=== PATIENT | female | born 1970 | race African-American/Black ===

== ENCOUNTER 2017-01-23 16:26 | Emergency (ER) | payer BC ==
[~2017-01-23] VITALS: Ht 167.6 cm; Wt 97.6 kg
[~2017-01-23 16:26] MED LIST: NO MEDS; NOHOMEMEDS; VIMOVO 500-201 EAC1 PO
[2017-01-23] MEDS ORDERED: VENTOLIN HFA18 GM IH (17:55)
[2017-01-23] MEDS ORDERED: MOTRIN800 MG PO (17:55)
[2017-01-23] MEDS ORDERED: FLONASE16 G1 BOTH NARES (17:55)
[2017-01-23] MEDS ORDERED: TESSALON PERLE100 MG PO (17:55)
[2017-01-23] MEDS ORDERED: PREDNISONE20 MG PO (17:55)
[2017-01-23 18:25] LABS: INFLUENZA A VIRAL ANTIGEN NEGATIVE; INFLUENZA B VIRAL ANTIGEN POSITIVE
[2017-01-23 18:43] VITALS: BP 132/82
== END 2017-01-23 18:44 | disposition home or self-care (01) ==
LOC: EME 16:26
PROVIDERS: Physician Assistant
DX: J10.1 Influenza due to other identified influenza virus with other respiratory manifestations (principal); J01.90 Acute sinusitis, unspecified; J20.9 Acute bronchitis, unspecified; K90.0 Celiac disease
CPT/HCPCS: 87502; 94640; 99281; 99284; J7512

== ENCOUNTER 2018-04-29 17:59 | Emergency (ER) | payer BC ==
[~2018-04-29] VITALS: Ht 165.1 cm; Wt 97.7 kg
[~2018-04-29 17:59] MED LIST changes: +FLONASE16 G1 BOTH NARES; +MOTRIN800 MG PO; +PREDNISONE20 MG PO; +TESSALON PERLE100 MG PO; +VENTOLIN HFA18 GM IH
[2018-04-29] MEDS ORDERED: LIDODERM 5% P1 PATCH TD (18:53)
[2018-04-29] MEDS ORDERED: FLEXERIL10 MG PO (18:53)
[2018-04-29] MEDS ORDERED: MOTRIN800 MG PO (18:53)
[2018-04-29 19:12] VITALS: BP 138/84
== END 2018-04-29 19:51 | disposition hospice, inpatient (51) ==
LOC: EME 17:59
DX: S39.012A Strain of muscle, fascia and tendon of lower back, initial encounter (principal); X58.XXXA Exposure to other specified factors, initial encounter; M54.41 Lumbago with sciatica, right side; K90.0 Celiac disease; Z90.710 Acquired absence of both cervix and uterus; Z91.02 Food additives allergy status
CPT/HCPCS: 72100; 99281; 99284; J1885

== ENCOUNTER 2018-05-16 14:57 | Emergency (ER) | payer BC ==
[~2018-05-16] VITALS: Ht 165.1 cm; Wt 98.3 kg
[~2018-05-16 14:57] MED LIST changes: +FLEXERIL10 MG PO; +LIDODERM 5% P1 PATCH TD
[2018-05-16 17:54] LABS: APPEARANCE CLEAR ((CLEAR)); BILIRUBIN NEGATIVE; BLOOD SMALL; COLOR COLORLESS ((YELLOW)); GLUCOSE (STRIP) NEGATIVE; KETONES NEGATIVE; LEUKOCYTES NEGATIVE; NITRITE NEGATIVE; PROTEIN (STRIP) NEGATIVE; SPECIFIC GRAVITY 1.004 (1.000-1.030); UROBILINOGEN 0.2 MG/DL (0.2-1.0)
[2018-05-16 18:08] LABS: BACTERIA RARE /HPF; EPITHELIAL CELLS RARE /HPF; MUCUS NONE SEEN /LPF; RED BLOOD CELLS 0-5 /HPF (0-5); UCUL ADDED? NO; WHITE BLOOD CELLS 0-5 /HPF (0-5)
[2018-05-16] MEDS ORDERED: ULTRACET1 TABLET PO (19:10)
[2018-05-16 19:28] VITALS: BP 151/83
== END 2018-05-16 19:29 | disposition home or self-care (01) ==
LOC: EME 14:57
PROVIDERS: Physician Assistant
DX: M54.16 Radiculopathy, lumbar region (principal); R31.9 Hematuria, unspecified
CPT/HCPCS: 74176; 81003; 81025; 99281; 99284; J1100

== ENCOUNTER 2018-06-09 15:00 | Emergency (ER) | payer BC ==
[~2018-06-09] VITALS: Ht 165.1 cm; Wt 100.6 kg
[~2018-06-09 15:00] MED LIST changes: +ULTRACET1 TABLET PO
[2018-06-09 16:02] LABS: APPEARANCE CLEAR ((CLEAR)); BILIRUBIN NEGATIVE; BLOOD NEGATIVE; COLOR YELLOW ((YELLOW)); GLUCOSE (STRIP) NEGATIVE; KETONES NEGATIVE; LEUKOCYTES NEGATIVE; NITRITE NEGATIVE; PROTEIN (STRIP) NEGATIVE; SPECIFIC GRAVITY 1.025 (1.000-1.030); UROBILINOGEN 0.2 MG/DL (0.2-1.0)
[2018-06-09] MEDS ORDERED: LIDODERM 5% P1 PATCH TD (16:51)
[2018-06-09] MEDS ORDERED: INDOCIN50 MG PO (16:51)
[2018-06-09] MEDS ORDERED: ROBAXIN750 MG PO (16:51)
[2018-06-09 17:32] VITALS: BP 152/88
== END 2018-06-09 17:34 | disposition home or self-care (01) ==
LOC: EME 15:00
PROVIDERS: Nurse Practitioner Family
DX: M54.16 Radiculopathy, lumbar region (principal); M71.551 Other bursitis, not elsewhere classified, right hip; Z79.891 Long term (current) use of opiate analgesic; Z91.02 Food additives allergy status
CPT/HCPCS: 72100; 73502; 81003; 99281; 99284; J1885